=== PATIENT | male | born 1960 | race Caucasian/White ===

== ENCOUNTER 2021-03-17 05:40 | Day surgery (SDC) | payer MEDICARE ==
[~2021-03-17] VITALS: Ht 177.8 cm; Wt 97.7 kg
[2021-03-17 06:25] LABS: BASOPHILS 0.5 % (0-2); EOSINOPHILS 1.9 % (0-7); HEMATOCRIT 47.4 % (42.0-54.0); HEMOGLOBIN 15.8 g/dL (13.5-17.5); IMMATURE GRANULOCYTES 0.2 % (0-5); LYMPHOCYTE ABS# 1.62 10x3/uL (1.32-3.57); LYMPHOCYTES 17.7 % (15-50); MCH 29.6 pg (26.0-34.0); MCHC 33.3 g/dL (31.0-37.0); MCV 88.8 fL (80.0-100.0); MEAN PLATELET VOLUME 11.1 fL (7.4-10.4); MONOCYTES 14.2 % (2-11); NEUTROPHIL ABS# 5.98 10x3/uL (1.78-5.38); NEUTROPHILS 65.5 % (40-80); PLATELET COUNT 275 10x3/uL (130-400); RBC 5.34 10x6/uL (4.20-6.10); RDW 14.3 % (11.5-14.5); WBC 9.1 10x3/uL (4.8-10.8)
[2021-03-17 06:34] LABS: ANION GAP 16.5 mmol/L (8-16); CALCIUM 9.7 mg/dL (8.5-10.1); CARBON DIOXIDE 22.8 mmol/L (21.0-32.0); CREATININE - SERUM 1.2 mg/dL (0.6-1.3); POTASSIUM - SERUM 4.3 mmol/L (3.5-5.1)
[2021-03-17] MEDS ORDERED: XANAX2 MG PO (07:24)
[2021-03-17] MEDS ORDERED: PROZAC20 MG PO (07:24)
[2021-03-17] MEDS ORDERED: ALBUTEROL SULF8.5 GM (07:24)
[2021-03-17] MEDS ORDERED: VIBRAMYCIN 100100 MG PO (07:24)
[2021-03-17] MEDS ORDERED: SYMBICORT 16010.2 GM INH (07:25)
[2021-03-17] MEDS ORDERED: METFORMIN HCL500 M1 PO (07:25)
[2021-03-17] MEDS ORDERED: CYCLOBENZAPRINE10 MG PO (07:25)
[2021-03-17] MEDS ORDERED: REMERON15 MG PO (07:26)
[2021-03-17] MEDS ORDERED: MOBIC7.5 MG PO (07:26)
[2021-03-17 07:34] VITALS: BP 117/77; Ht 177.8 cm; Wt 97.7 kg
--- NOTE | 2021-03-17 08:35 | NUR ---
DR HILLIARD AT BEDSIDE 0856 FAXED ORDER FOR 8 WK F/U APPT TO DR. HILLIARD'S OFFICE 0908 DC INSTRUCTIONS GIVEN TO PT. VERBALIZED UNDERSTANDING 0915 PIV DC'D WITH CATHETER INTACT, PT GETTING DRESSED. 0934 PT DC'D VIA WC ACCOMPANIED BY [facility] TO POV WITH FAMILY/FRIEND DRIVING. PT HAS ALL BELONGINGS AND DC PACKET.
--- NOTE | 2021-03-18 14:32 | OP ---
PATIENT NAME: NAZ FERNANDEZ MEDICAL RECORD: [id number] :56 LOCATION:[facility] ADMISSION DATE: SURGEON: ROSA HILLIARD DO DATE OF OPERATION: 03/17/2021 PROCEDURE: EGD with balloon dilation and biopsies. INDICATION FOR PROCEDURE: Dysphagia, heartburn, positive stool guaiac. SCOPE: Olympus video gastroscope. MEDICATIONS: Propofol 350 mg IV per anesthesia. ESTIMATED BLOOD LOSS: Minimal. COMPLICATIONS: None. FINDINGS: Informed consent was given. The patient was made comfortable with the above medication. After reaching an adequate level of sedation by slow IV push, the patient was placed on his left side. The endoscope was advanced under direct visualization through the mouth to the second portion of the duodenum with ease. In the most proximal esophagus, there were two inlet patches of heterotopic gastric mucosa present. Appearances were benign. The endoscope was advanced beyond this site into the mid-esophagus. In the proximal mid esophagus, there were patchy areas of Paulette present. In the mid to distal esophagus and down to the GE junction, there was evidence of erosive reflux-induced esophagitis. There were a couple ulcerations at the GE junction, which contributed to an esophageal stricture, which was traversed prior to dilation. A CRE dilating balloon was used to dilate the site up to 17 mm in maximum diameter successfully. Cold forceps biopsies were taken from the mid esophagus and at the GE junction. The endoscope was advanced beyond the GE junction into the stomach and retroflexed view of the cardia and fundus. There was a small sliding hiatal hernia present involving the cardia. There were no associated ulcerations or other abnormalities. The fundus and body of the stomach were within normal limits. In the antrum and prepyloric region, there were changes of erythema and granularity and some erosions consistent with chronic gastritis changes. Cold forceps biopsies were taken from the antrum to submit for histopathology and to rule out the presence of H. pylori. The endoscope was then advanced beyond the pylorus into the duodenum where there were changes of duodenitis present throughout the bulb and second portion. Cold forceps biopsies were taken from the duodenum. The endoscope was withdrawn from the patient. The patient tolerated the procedure well and there were no complications. IMPRESSION: 1. Heterotopic gastric mucosa inlet patch. 2. Candidal esophagitis. 3. Erosive reflux-induced esophagitis. 4. Esophageal stricture at the GE junction, dilated to 17 mm maximum diameter successfully. 5. Small sliding hiatal hernia. 6. Gastritis involving the antrum. 7. Duodenitis involving the bulb and second portion of the duodenum. PLAN AND RECOMMENDATIONS: OPERATIVE REPORT [id number] NAZ FERNANDEZ 1. Discharge home when recovery parameters are met. 2. Follow up biopsy specimen results. 3. GERD diet and reflux precautions. 4. We will send in a prescription for a scheduled proton pump inhibitor therapy at 40 mg equivalence daily times at least 60 days. 5. Fluconazole 200 mg daily times 14 days. 6. Proceed with colonoscopy as scheduled. 7. Follow up in GI clinic in 6 to 8 weeks. TRANSINT:[id number] Voice Confirmation ID: [id number] DOCUMENT ID: [id number] ROSA HILLIARD DO at 1432 CC: [id number] DICTATION DATE: 03/17/21826 FOOD SERVICE CLERK: 03/17/21 1052 [facility] 03/17/21 [id number] [place] [address]
== END 2021-03-17 09:34 | disposition home or self-care (01) ==
LOC: D.OPS 05:40
PROVIDERS: Anesthesiology; ATTEND Internal Medicine Gastroenterology
DX: R13.10 Dysphagia, unspecified (principal); R12 Heartburn; R19.5 Other fecal abnormalities; B37.81 Candidal esophagitis; K21.00 Gastro-esophageal reflux disease with esophagitis, without bleeding; K44.9 Diaphragmatic hernia without obstruction or gangrene; K29.70 Gastritis, unspecified, without bleeding; K29.80 Duodenitis without bleeding; K92.1 Melena